=== PATIENT | female | born 1990 | race Two or more races ===

== ENCOUNTER 2016-03-24 17:21 | Emergency (ER) | payer SELFPAY ==
--- NOTE | 2016-03-24 17:35 | ER Document Report ---
ED Medical Screen (RME) - General Stated Complaint: EAR PAIN Time seen by provider: 17:33 Mode of Arrival: Ambulatory Information source: Patient Notes: 25-year-old female with complaining of upper respiratory infection can no longer hear out of both of her ears I can see bilateral purulent effusions in triage. TRAVEL OUTSIDE OF THE [place] IN LAST 30 DAYS: No - Related Data Allergies/Adverse Reactions: No Known Allergies Allergy (Verified 04/19/15 06:29) Past Medical History - Past Medical History Cardiac Medical History: Denies: Hx Coronary Artery Disease, Hx Heart Attack, Hx Hypertension Pulmonary Medical History: Denies: Hx Asthma, Hx Bronchitis, Hx COPD, Hx Pneumonia Neurological Medical History: Denies: Hx Cerebrovascular Accident, Hx Seizures Musculoskeltal Medical History: Reports Hx Arthritis - Hands, Lt knee - Immunizations Immunizations up to date: Yes Hx Diphtheria, Pertussis, Tetanus Vaccination: Yes Physical Exam - Vital signs Vitals: Temp Pulse Resp BP Pulse Ox 99.2 F 105 H 16 149/97 H 97 03/24/16 17:27 03/24/16 17:27 03/24/16 17:27 03/24/16 17:27 03/24/16 17:27 Course - Vital Signs Vital signs: Temp Pulse Resp BP Pulse Ox 99.2 F 105 H 16 149/97 H 97 03/24/16 17:27 03/24/16 17:27 03/24/16 17:27 03/24/16 17:27 03/24/16 17:27
[2016-03-24] MEDS ORDERED: AMOXICILLIN TRYHYD 250 MG/5 ML SUSP 80 ML (ER DISP) PO ONE (18:23)
--- NOTE | 2016-03-24 18:32 | ER Document Report ---
ED General - General Chief Complaint: Cold Symptoms Stated Complaint: EAR PAIN Time seen by provider: 18:26 Mode of Arrival: Ambulatory Information source: Patient TRAVEL OUTSIDE OF THE [place] IN LAST 30 DAYS: No - HPI Patient complains to provider of: R ear pain Onset: Other - Pt. with c/o congestion and R earache for the past 2-3 days. Denies fever. - Related Data Allergies/Adverse Reactions: No Known Allergies Allergy (Verified 04/19/15 06:29) Past Medical History - General Information source: Patient - Social History Smoking Status: Never Smoker Cigarette use (# per day): No Chew tobacco use (# tins/day): No Smoking Education Provided: No Family History: Reviewed & Not Pertinent - Past Medical History Cardiac Medical History: Denies: Hx Coronary Artery Disease, Hx Heart Attack, Hx Hypertension Pulmonary Medical History: Denies: Hx Asthma, Hx Bronchitis, Hx COPD, Hx Pneumonia Neurological Medical History: Denies: Hx Cerebrovascular Accident, Hx Seizures Renal/ Medical History: Denies: Hx Peritoneal Dialysis Musculoskeltal Medical History: Reports Hx Arthritis - Hands, Lt knee - Immunizations Immunizations up to date: Yes Hx Diphtheria, Pertussis, Tetanus Vaccination: Yes Review of Systems - Review of Systems Constitutional: No symptoms reported EENT: See HPI, Ear pain Cardiovascular: No symptoms reported Respiratory: No symptoms reported Gastrointestinal: No symptoms reported -: Yes All other systems reviewed and negative Physical Exam - Vital signs Vitals: Temp Pulse Resp BP Pulse Ox 99.2 F 105 H 16 149/97 H 97 03/24/16 17:27 03/24/16 17:27 03/24/16 17:27 03/24/16 17:27 03/24/16 17:27 - General General appearance: Appears well In distress: None - HEENT Ears: Other - R TM- red, dull, loss of landmarks. L TM nl. Mouth/Lips: Normal Mucous membranes: Normal Pharynx: Normal Neck: Normal - Respiratory Respiratory status: No respiratory distress Breath sounds: Normal - Cardiovascular Rhythm: Regular Heart sounds: Normal auscultation Course - Vital Signs Vital signs: Temp Pulse Resp BP Pulse Ox 99.2 F 105 H 16 149/97 H 97 03/24/16 17:30 03/24/16 17:30 03/24/16 17:30 03/24/16 17:30 03/24/16 17:30 Discharge - Discharge Clinical Impression: Otitis media Qualifiers: Otitis media type: unspecified Laterality: right Chronicity: acute Condition: Stable Disposition: HOME, SELF-CARE Additional Instructions: rest, take meds as prescribed , return if worse Prescriptions: Amoxicillin 250 mg PO Q8 #120 ml Referrals: TONA SANTA MD [ACTIVE STAFF] - Follow up as needed
[2016-03-24 19:12] VITALS: BP 130/68
== END 2016-03-24 18:55 | disposition home or self-care (01) ==
LOC: ER 17:21
DX: H66.91 Otitis media, unspecified, right ear (principal); H92.01 Otalgia, right ear
CPT/HCPCS: 99282

== ENCOUNTER 2016-06-26 08:19 | Emergency (ER) | payer SELFPAY ==
[2016-06-26] MEDS ORDERED: LIDOCAINE 4%/TETRACAINE 0.5%/EPI 0.18% 5 ML TOPICAL SOLN TOP ONE (08:32)
[2016-06-26] MEDS ORDERED: LIDOCAINE 1% INJ-PF (10 MG/ML) 30 ML SDV INJ ONE (08:46)
--- NOTE | 2016-06-26 08:46 | ER Document Report ---
HPI - HPI Patient complains to provider of: Cut head Onset: Yesterday - Late Onset/Duration: Sudden Quality of pain: Achy Pain Level: 1 Context: 25-year-old female bumped the top of her head on a counter late last night. She did not realize that it was cut open until this morning. Tetanus is current. No dizziness or loss of consciousness Associated Symptoms: None Exacerbated by: Denies Relieved by: Denies Similar symptoms previously: No Recently seen / treated by doctor: No - ROS ROS below otherwise negative: Yes Systems Reviewed and Negative: Yes All other systems reviewed and negative - REPRODUCTIVE LMP: 05/31 Reproductive: REPORTS: : - DERM Skin Color: Normal Past Medical History - General Information source: Patient - Social History Smoking Status: Never Smoker Frequency of alcohol use: None Drug Abuse: None Lives with: Spouse/Significant other Family History: Reviewed & Not Pertinent Patient has suicidal ideation: No Patient has homicidal ideation: No Renal/ Medical History: Denies: Hx Peritoneal Dialysis Musculoskeltal Medical History: Reports Hx Arthritis - Hands, Lt knee - Immunizations Immunizations up to date: Yes Hx Diphtheria, Pertussis, Tetanus Vaccination: Yes Vertical Provider Document - CONSTITUTIONAL Agree With Documented VS: Yes Exam Limitations: No Limitations - INFECTION CONTROL TRAVEL OUTSIDE OF THE [place] IN LAST 30 DAYS: No - HEENT HEENT: Normocephalic Notes: 2.5 cm cut front top of scalp - NECK Neck: Supple - RESPIRATORY O2 Sat by Pulse Oximetry: 98 - MUSCULOSKELETAL/EXTREMETIES Musculoskeletal/Extremeties: MAEW, FROM - NEURO Level of Consciousness: Awake, Alert, Appropriate Motor/Sensory: No Motor Deficit, No Sensory Deficit - DERM Integumentary: Warm, Dry, Laceration - see above Course - Vital Signs Vital signs: Temp Pulse Resp BP Pulse Ox 98.9 F 86 16 133/74 H 98 06/26/16 08:24 06/26/16 08:24 06/26/16 08:24 06/26/16 08:24 06/26/16 08:24 Procedures - Laceration/Wound Repair Head Time completed: 09:40 Wound length (cm): 2.5 Wound's Depth, Shape: Linear Laceration pre-procedure: Sterile drapes applied, Other - surgiscrub Anesthetic type: Other - L.E.T Volume Anesthetic (mLs): 6 Wound explored: Clean Irrigated w/ Saline (mLs): 250 Wound Repaired With: Leeann Number of Sutures: 5 Post-procedure NV exam normal: Yes Complications: No Discharge - Discharge Clinical Impression: scalp laceration repair Condition: Good Disposition: HOME, SELF-CARE Instructions: Antibiotic Ointment Protection ([facility]), Laceration Care ([facility]), Care of Stapled Wounds ([facility]), Use of [id number] Ibuprofen ([facility]) Additional Instructions: Keep the wound clean felecia may shower when you get home [place] and [place] removed in 1 week Return for any signs of infection Please complete the patient satisfaction survey if you get one, and return it.. If you do not receive a survey, then you can go to the [facility] website, [email or web address] and place your comments about your very good care. Thank you very much. It was a pleasure being your medical provider today. Forms: Return to Work
[2016-06-26 09:57] VITALS: BP 137/92
== END 2016-06-26 09:51 | disposition home or self-care (01) ==
LOC: ER 08:19
PROC: 0HQ0XZZ Repair Scalp Skin, External Approach (ICD-10-PCS; principal; 2016-06-26)
DX: S01.91XA Laceration without foreign body of unspecified part of head, initial encounter (principal); W22.8XXA Striking against or struck by other objects, initial encounter
CPT/HCPCS: 99282; 12001; J3490 ×2

== ENCOUNTER 2017-06-02 13:15 | Outpatient (CLI) | payer MEDICAID ==
[2017-06-02 14:17] LABS: APPEARANCE,URINE CLOUDY; BILIRUBIN,URINE NEGATIVE (NEGATIVE); COLOR,URINE AMBER; GLUCOSE, URINE NEGATIVE (NEGATIVE); KETONES,URINE 80 mg/dL (NEGATIVE); LEUKOCYTE ESTERASE,URINE SMALL (NEGATIVE); NITRITE,URINE NEGATIVE (NEGATIVE); PROTEIN,URINE 30 mg/dL (NEGATIVE); URINE SPECIFIC GRAVITY 1.024
[2017-06-02 14:41] LABS: URINE AMPHETAMINES SCREEN NEGATIVE; URINE BARBITURATES SCREEN NEGATIVE; URINE BENZODIAZEPINES SCREEN NEGATIVE; URINE COCAINE SCREEN NEGATIVE; URINE MARIJUANA (THC) SCREEN NEGATIVE; URINE METHADONE SCREEN NEGATIVE; URINE PHENCYCLIDINE SCREEN NEGATIVE
== END 2017-06-02 15:43 | disposition home or self-care (01) ==
LOC: LC 13:15
PROVIDERS: ATTEND Obstetrics & Gynecology
PROC: 4A1HXCZ Monitoring of Products of Conception, Cardiac Rate, External Approach (ICD-10-PCS; principal; 2017-06-02)
DX: O99.283 Endocrine, nutritional and metabolic diseases complicating pregnancy, third trimester (principal); E86.0 Dehydration; Z3A.37 37 weeks gestation of pregnancy
CPT/HCPCS: 59025; 80307; 81005

== ENCOUNTER 2017-06-16 22:32 | Inpatient (IN) | payer MEDICAID ==
[2017-06-16 23:07] LABS: APPEARANCE,URINE TURBID; BILIRUBIN,URINE NEGATIVE (NEGATIVE); COLOR,URINE AMBER; GLUCOSE, URINE NEGATIVE (NEGATIVE); KETONES,URINE 80 mg/dL (NEGATIVE); LEUKOCYTE ESTERASE,URINE LARGE (NEGATIVE); NITRITE,URINE NEGATIVE (NEGATIVE); PROTEIN,URINE 100 mg/dL (NEGATIVE); URINE SPECIFIC GRAVITY 1.011
[2017-06-16 23:16] LABS: AMNISURE (ROM) POSITIVE (NEGATIVE)
[2017-06-16] MEDS ORDERED: RINGERS SOLUTION,LACTATED 1,000 ML IV PRN (23:16)
[2017-06-16] MEDS ORDERED: RINGERS SOLUTION,LACTATED 1,000 ML IV ONE (23:16)
[2017-06-16] MEDS ORDERED: PENICILLIN G POTASSIUM 5,000,000 UNIT in DEXTROSE 5%-WATER 100 ML IV ONE (23:16)
[2017-06-16 23:23] LABS: URINE AMPHETAMINES SCREEN NEGATIVE; URINE BARBITURATES SCREEN NEGATIVE; URINE BENZODIAZEPINES SCREEN NEGATIVE; URINE COCAINE SCREEN NEGATIVE; URINE MARIJUANA (THC) SCREEN NEGATIVE; URINE METHADONE SCREEN NEGATIVE; URINE PHENCYCLIDINE SCREEN NEGATIVE
[2017-06-16] MEDS ORDERED: OXYTOCIN/NORMAL SALINE 20 UNIT/1,000 ML RTUINJ IV PRN (23:23)
[2017-06-16] MEDS ORDERED: PENICILLIN G-K 5 MILLION UNIT VIAL ONE (23:31)
[2017-06-16] MEDS ORDERED: LIDOCAINE 1% INJ-PF (10 MG/ML) 30 ML SDV ONE (23:31)
[2017-06-16] MEDS ORDERED: OXYTOCIN/NORMAL SALINE 20 UNIT/1,000 ML RTUINJ ONE (23:31)
[2017-06-16] MEDS ORDERED: MISOPROSTOL 0.2 MG TABLET ONE (23:31)
[2017-06-17 00:03] LABS: ABSOLUTE LYMPHOCYTES (AUTO) 1.4 10^3/uL (0.5-4.7); ABSOLUTE MONOCYTES (AUTO) 0.8 10^3/uL (0.1-1.4); BASOPHILS % (AUTO) 0.3 % (0-2); EOSINOPHILS % (AUTO) 0.2 % (0-6); HEMATOCRIT 38.6 % (36.0-47.0); HEMOGLOBIN 13.1 g/dL (12.0-15.5); LYMPHOCYTES % (AUTO) 12.7 % (13-45); MEAN CORPUSCULAR HGB CONC 33.9 g/dL (32.0-36.0); MEAN CORPUSCULAR VOLUME 92 fl (80-97); MONOCYTES % (AUTO) 7.4 % (3-13); PLATELET COUNT 263 10^3/uL (150-450); RED BLOOD COUNT 4.22 10^6/uL (3.72-5.28); RED CELL DISTRIBUTION WIDTH 14.1 % (11.5-14.0); SEGMENTED NEUTROPHILS % (AUTO) 79.4 % (42-78); TOTAL CELLS COUNTED % (AUTO) 100 %; WHITE BLOOD COUNT 11.3 10^3/uL (4.0-10.5)
--- NOTE | 2017-06-17 00:18 | Admission Physical ---
Datetime Report Generated by CPN: 06/17/2017 00:18 CURRENT ADMISSION Chief Complaint: Suspected Ruptured Membranes Indication for Induction: PROM Admit Impression : Term, Intrauterine ; Ruptured Membranes; Induction of Labor Admit Plan: Admit to Unit; Initiate Labor Induction Protocol ALLERGIES Medication Allergies: No Medication Allergies: No Known Allergies (06/26/2016) Latex: No Latex Allergies OBSTETRICAL HISTORY EDC: 06/18/2017 00:00 : 3 Para: 2 Term: 2 : 0 SAB: 0 IAB: 0 Ectopic: 0 Livin Cesareans: 0 VBACs: 0 Multiple Births: 0 Gestational Diabetes: No Rh Sensitization: No Incompetent Cervix: No JOHANNE: No Infertility: No ART Treatment: No Uterine Anomaly: No IUGR: No Hx Previous C/S: No Macrosomia: No Hx Loss/Stillborn: No PIH: No Hx : No Placenta Previa/Abruption: No Depression/PP Depression: No PTL/PROM: No Post Hemorrhage: No Current Procedures: Ultrasound; NST SEE RECORDS Alcohol: No Marijuana : No Cocaine: No Other Illicit Drugs: No Cigarettes: Never Smoker. 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 Surgery: No Heart Disease: No Hosp/Surgery: No Autoimmune Disorder: No Anesthetic Complications: No Kidney Disease: No Abnormal Pap Smear: No Neuro/Epilepsy: No Psychiatric Disorders: No Other Medical Diseases: No Hepatitis/Liver Disease: No Significant Family History: No Varicosities/Phlebitis: No Trauma/Violence : No Thyroid Dysfunction: No INFECTIOUS HISTORY Genital Herpes: No Tuberculosis: No Hepatitis: No HIV/AIDS Exposure: No Rash or Viral Illness: No HPV: No PHYSICAL EXAM General: Normal HEENT: Normal Neurologic: Normal Thyroid: Deferred Heart: Normal Lungs: Normal Breast: Deferred Back: Normal Abdomen: Normal Genitourinary Exam: Normal Extremities: Normal DTRs: Normal Pelvic Type: Adequate Vital Signs: Reviewed VAGINAL EXAM Dilatation: 2 Effacement: 25 Station: -4 Contraction Comments: none FETUS A EGA: 39.6 Monitoring: External US FHR- Baseline: 125 Variability: Moderate 6-25bpm Accelerations: 15X15 Decelerations: None FHR Category: Category I Presentation: Vertex Admit Comment: 26yo at 39+6ega presents for premature rupture of memranes - clear fluid at 2225. GBS positive - will begin PCN for prophy. Will begin pitocin. Cervix is unfavorable and will place cooks catheter for IOL with pitocin. Obesity - BMI 48. Macrosomia with 8# at 36wks. Anesthesia consult done 06/06. 1st child with only one ear developed - reportedly no genetic component. Pelvis proven to 8#6oz. Passed early 1hr GTT and passed 28wks GTT. Anticpate . C/S for maternal/ indications. PLANS FOR LABOR AND DELIVERY Labor and Delivery: None Pain Management: Epidural Feeding Preference: Both Benefit of Breast Feed Discussed: Yes Circumcision: Yes INFORMED CONSENT Informed Consent Obtained: Vaginal Delivery; Induction of Labor; Risks, Benefits and Alternatives Discussed Signature: with User ID: [email or web address]
[2017-06-17] MEDS ORDERED: NALBUPHINE HCL INJ 10 MG/1 ML AMPULE ONE (00:19)
[2017-06-17] MEDS ORDERED: NALBUPHINE HCL INJ 10 MG/1 ML AMPULE INJ ONE (00:21)
[2017-06-17] MEDS ORDERED: ONDANSETRON HCL INJ/PF 4 MG/2 ML SDV IV PRN (00:32)
[2017-06-17] MEDS ORDERED: PENICILLIN G-K 5 MILLION UNIT VIAL ONE ×2 (03:54→08:15)
[2017-06-17] MEDS ORDERED: PHENYLEPHRINE HCL INJ/PF 10 MG/1 ML SDV ONE (05:04)
[2017-06-17] MEDS ORDERED: FENTANYL CITRATE INJ/PF 100 MCG/2 ML AMPUL ONE (05:04)
[2017-06-17] MEDS ORDERED: EPHEDRINE SULFATE INJ 50 MG/1 ML AMPULE ONE (05:04)
[2017-06-17] MEDS ORDERED: BUPIVACAINE HCL 0.25 % INJ/PF (2.5 MG/1 ML) 30 ML VIAL ONE (05:05)
[2017-06-17] MEDS ORDERED: FENTANYL/BUPIVACAINE/NS/PF 200 MCG/100 ML RTUINJ EPI ONE (05:06)
[2017-06-17] MEDS ORDERED: LIDOCAINE 1.5%/EPINEPHRINE INJ-PF 30 ML SDV ONE (05:06)
[2017-06-17] MEDS: PENICILLIN G POTASSIUM 2,500,000 UNIT in DEXTROSE 5%-WATER 50 ML IV SCH ×2 (08:23→14:47)
--- NOTE | 2017-06-17 09:16 | L&D Progress Notes ---
PROGRESS NOTES Datetime Report Generated by CPN: 06/17/2017 09:16 PROGRESS NOTE Impression: Normal Progression of Labor Procedures: Scalp Electrode; Sterile Vag Exam; Amnio Infusion Plan: Continue Present Management; Induction Plan Other: PROM Informed Consent Obtained: Vaginal Delivery Informed Consent Obtained: Vaginal Delivery; Induction of Labor; Risks, Benefits and Alternatives Discussed Vital Signs : Reviewed; Within Normal Limits Comment: IOL for PROM. obese. IUPC and FSE placed easily for better monitoring. CNM requested RN turn pitocin down by 2mu/min after IUPC. continue IOL, anticipate VAGINAL EXAM Dilatation: 7 Dilatation: 2 Effacement: c Effacement: 25 Station: -2 Station: -4 Contractions: q2mins Contractions: none MEMBRANES Membranes: Ruptured Amniotic Fluid Color: Clear FETUS A FHR - Baseline: 130 Decelerations: Early; Variable : 39+5 Presentation: Vertex SIGNATURE SIGNATURE: [id number] SIGNATURE: [id number] Assignment: Leny Calles MD Signature: with User ID: [email or web address] : with User ID: [email or web address]
[2017-06-17] MEDS ORDERED: (PENDING PHARMACY ID) (Sertraline Hcl [Zoloft] 25 MG) PO SCH (10:00)
[2017-06-17] MEDS ORDERED: MAGNESIUM HYDROXIDE SUSP 30 ML UDCUP PO PRN (10:43)
[2017-06-17] MEDS ORDERED: PSEUDOEPHEDRINE HCL 30 MG TABLET PO PRN (10:43)
[2017-06-17] MEDS ORDERED: OXYTOCIN/NORMAL SALINE 20 UNIT/1,000 ML RTUINJ IV PRN (10:43)
[2017-06-17] MEDS ORDERED: ACETAMINOPHEN WITH CODEINE #3 TABLET PO PRN ×2 (10:43)
[2017-06-17] MEDS ORDERED: DIPH/PERTUSS(ACELL)/TETANUS VAC/PF 0.5 ML SYR (>=10YO) IM PRN (10:43)
[2017-06-17] MEDS ORDERED: DIPHENHYDRAMINE HCL 25 MG CAPSULE PO PRN (10:43)
[2017-06-17] MEDS ORDERED: PROMETHAZINE HCL 25 MG TABLET PO PRN (10:43)
[2017-06-17] MEDS ORDERED: DIBUCAINE 1% OINTMENT 28 GM TP PRN (10:43)
[2017-06-17] MEDS ORDERED: PROMETHAZINE HCL 25 MG SUPP.RECT PR PRN (10:43)
[2017-06-17] MEDS ORDERED: MEASLES,MUMPS&RUBELLA VACC/PF 0.5 ML VIAL SUBCUT PRN (10:43)
[2017-06-17] MEDS ORDERED: ACETAMINOPHEN 325 MG TABLET PO PRN (10:43)
[2017-06-17] MEDS ORDERED: NA PHOS,M-B/NA PHOS,DI-BA (ADULT) 133 ML ENEMA PR PRN (10:43)
[2017-06-17] MEDS ORDERED: PROMETHAZINE HCL INJ 25 MG/1 ML VIAL IV PRN (10:43)
[2017-06-17] MEDS ORDERED: GLYCERIN/WITCH HAZEL LEAF 1 EACH MED..PAD TP PRN (10:43)
[2017-06-17] MEDS ORDERED: BENZOCAINE/MENTHOL AEROSOL SPRAY 56 ML TOP PRN (10:43)
[2017-06-17] MEDS ORDERED: ZOLPIDEM TARTRATE 5 MG TABLET PO PRN (10:43)
--- NOTE | 2017-06-17 13:04 | Delivery Summary ---
Del Sum A-C Datetime Report Generated by CPN: 06/17/2017 13:04 DELIVERY PERSONNEL DELIVERY PERSONNEL: [id number] Delivery Doctor:: Sarah Seals CNM Labor and Delivery Nurse:: Latrice Calles RNplant and equipment worker Nurse:: Leticia Goyal RN Greeting Card Editor/COOK AT [employer]CHO[employer]: Elaine Jay Jay, BUYING AGENT Greeting Card Editor/COOK AT [employer]CHO[employer]: Tylor Summers RN MATERNAL INFORMATION Delivery Anesthesia: Epidural Medications After Delivery: Pitocin Bolus-Please Comment Meds After Delivery Comment: Pitocin 20 Units in 1 L NS bolusing per order Maternal Complications: None Provider Comments: CAYLA VIABLE MALE WITH SPONTANEOUS CRY. LOOSE NUCHAL CORD X1. CORD DOUBLE CLAMPED AND CUT. SPONTANEOUS INTACT PLACENTA WITH 3VC. NO LACERATIONS. MOTHER AND STABLE IN L_D ROOM #1 LABOR SUMMARY EDC: 06/18/2017 00:00 No. Babies in Womb: 1 (Annotations: Data stored by [facility] on behalf of user) Attempted: No Labor Anesthesia: Epidural LABOR INFORMATION Reason for Induction: Not Applicable Onset of Labor: 06/17/2017 05:49 Complete Dilatation: 06/17/2017 10:08 Cervical Ripening Agents: Hood Balloon Oxytocin: Augmentation Group B Beta Strep: Positive Antibiotics # of Doses: 3 Antibiotics Time of Last Dose: 814 Name of Antibiotic Given: PCN Steroids Given: None Reason Steroids Not Administered: Not Applicable MEMBRANES Membranes Rupture Method: Spontaneous Rupture of Membranes: 06/16/2017 22:25 Length of Rupture (hr): 11.77 Amniotic Fluid Color: Clear Amniotic Fluid Amount: Moderate Amniotic Fluid Odor: Normal STAGES OF LABOR Stage 1 hr: 4 Stage 1 min: 19 Stage 2 hr: 0 Stage 2 min: 3 Stage 3 hr: 0 Stage 3 min: 5 Total Time in Labor hr: 4 Total Time in Labor min: 27 VAGINAL DELIVERY Episiotomy: None Laceration #1: None Laceration Extension #1: N/A Laceration Repair: Not Applicable Sponge Count Correct: N/A Sharps Count Correct: N/A CSECTION DELIVERY Primary Indication: N/A Secondary Indication: N/A CSection Incidence: N/A Labor: N/A Elective: N/A CSection Incision: N/A BABY A INFORMATION Delivery Date/Time: 06/17/2017 10:11 Method of Delivery: Vaginal Born in Route : No : N/A Forceps: N/A Vacuum Extraction: N/A Shoulder Dystocia : No PRESENTATION/POSITION BABY A Presentation: Cephalic Cephalic Presentation: Vertex Vertex Position: Left Occipital Anterior Breech Presentation: N/A PLACENTA INFORMATION BABY A Placenta Delivery Time : 06/17/2017 10:16 Placenta Method of Delivery: Spontaneous Placenta Status: Delivered SCORES BABY A Heart Rate 1 min: >100 bpm Resp Effort 1 min: Good Cry Reflex Irritability 1 min: Grimace Muscle Tone 1 min: Active Motion Color 1 min: Body [place], Extremities Blue Resuscitation Effort 1 min: Tactile Stimulation SCORE 1 MIN: 8 Heart Rate 5 min: >100 bpm Resp Effort 5 min: Good Cry Reflex Irritability 5 min: Grimace Muscle Tone 5 min: Active Motion Color 5 min: Body [place], Extremities Blue Resuscitation Effort 5 min: Tactile Stimulation SCORE 5 MIN: 8 INFORMATION BABY A Gestational Age at Delivery: 39.6 Gestational Status: Full Term- 39- 40.6 Weeks Outcome : Liveborn Infant Condition : Stable Sex: Male IDENTIFICATION BABY A Infant Verification Date/Time: 06/17/2017 10:35 ID Band Number: [id number] Mother's Name Verified: Yes RN Verifying : Hernán Calles, RN, Debra Summers, RN WEIGHT/LENGTH BABY A Infant Birthweight (gm): 3640 Weight (lb): 8 Weight (oz): 0 Length (in): 21.00 Infant Length (cm): 53.34 CORD INFORMATION BABY A No. Cord Vessels: 3 Nuchal Cord : Around Neck x1, Loose Cord Blood Taken: Yes-For Eval (Mom's Blood Type - or O+) Infant Suction: Mouth ASSESSMENT BABY A Complications: None Physical Findings at Delivery: Within Normal Limits Respirations: Appears Normal Skin to Skin: Yes Fagoter/ALS Called : No Infant Care By: R Summers, RN BABY B INFORMATION : N/A SIGNATURES Assignment: Leny Calles MD Signature: with User ID: [email or web address] : with User ID: [email or web address] : I was personally available for consultation and serving as supervising physician for the MLP.
[2017-06-17] MEDS: SERTRALINE HCL 50 MG TABLET PO SCH (14:47)
[2017-06-17] MEDS: IBUPROFEN 800 MG TABLET PO SCH ×2 (14:54→22:09)
[2017-06-17] MEDS: DOCUSATE SODIUM 100 MG CAPSULE PO SCH (18:11)
[2017-06-17] MEDS: FERROUS SULFATE 325 MG TABLET PO SCH (18:11)
[2017-06-17] MEDS: FAMOTIDINE 20 MG TABLET PO SCH (22:09)
[2017-06-18] MEDS: IBUPROFEN 800 MG TABLET PO SCH ×3 (05:58→21:53)
[2017-06-18 07:03] LABS: HEMATOCRIT 35.7 % (36.0-47.0); HEMOGLOBIN 12.4 g/dL (12.0-15.5); MEAN CORPUSCULAR HEMOGLOBIN 31.7 pg (27.0-33.4); MEAN CORPUSCULAR HGB CONC 34.6 g/dL (32.0-36.0); MEAN CORPUSCULAR VOLUME 92 fl (80-97); PLATELET COUNT 242 10^3/uL (150-450); RED CELL DISTRIBUTION WIDTH 13.7 % (11.5-14.0)
--- NOTE | 2017-06-18 09:00 | PDOC PROGRESS REPORT ---
Subjective-OB Progress Note for:: 06/18/17 Subjective: Doing well, breast feeding, voiding, ambulating, no c/o Physical Exam (OB) Vital Signs: Temp Pulse Resp BP Pulse Ox 98.5 F 77 18 137/72 H 98 06/17/17 19:55 06/17/17 19:55 06/17/17 19:55 06/17/17 19:55 06/17/17 19:55 Intake & Output 06/17/17 06/18/17 06/19/17 06:59 06:59 06:59 Weight 139.5 kg - Lochia Lochia Amount: Scant < 10 ml Lochia Color: Rubra/Red - Abdomen Description: Soft, Flat Hernia Present: No Fundal Description: Firm, Midline Fundal Height: u/u - u/2 Objective-Diagnostic Laboratory: 06/18/17 06:49 06/18/17 06:49 WBC 8.0 RBC 3.90 Hgb 12.4 Hct 35.7 L MCV 92 MCH 31.7 MCHC 34.6 RDW 13.7 Plt Count 242 Assessment and Plan(PN) - Assessment and Plan (1) Delivery normal Is this a current diagnosis for this admission?: Yes (2) Obesity Qualifiers: Obesity type: due to excess calories Is this a current diagnosis for this admission?: Yes (3) Carrier of group B Streptococcus Is this a current diagnosis for this admission?: Yes (4) Premature rupture of membranes Qualifiers: PROM onset of labor timing: onset of labor within 24 hours of rupture Is this a current diagnosis for this admission?: Yes - Time Spent with Patient Medications reviewed and adjusted accordingly: Yes - Disposition Anticipated Discharge: Home Within: within 24 hours
[2017-06-18] MEDS: SERTRALINE HCL 50 MG TABLET PO SCH (09:24)
[2017-06-18] MEDS: SENNOSIDES/DOCUSATE 8.6-50 MG 1 EACH TABLET PO SCH (09:25)
[2017-06-18] MEDS: PRENATAL VITAMIN W DHA CAPSULE PO SCH (09:25)
[2017-06-18] MEDS: FERROUS SULFATE 325 MG TABLET PO SCH ×2 (09:25→18:41)
[2017-06-18] MEDS: DOCUSATE SODIUM 100 MG CAPSULE PO SCH ×2 (09:25→18:41)
[2017-06-18] MEDS: FAMOTIDINE 20 MG TABLET PO SCH ×2 (09:26→21:53)
[2017-06-19] MEDS: IBUPROFEN 800 MG TABLET PO SCH ×2 (05:34→15:09)
[2017-06-19 08:43] VITALS: BP 126/69
[2017-06-19] MEDS: PRENATAL VITAMIN W DHA CAPSULE PO SCH (10:07)
[2017-06-19] MEDS: DOCUSATE SODIUM 100 MG CAPSULE PO SCH (10:09)
[2017-06-19] MEDS: SENNOSIDES/DOCUSATE 8.6-50 MG 1 EACH TABLET PO SCH (10:16)
--- NOTE | 2017-06-19 10:22 | PDOC DISCHARGE SUMMARY ---
Final Diagnosis Discharge Date: 06/19/17 - Final Diagnosis (1) Delivery normal Is this a current diagnosis for this admission?: Yes (2) Obesity Is this a current diagnosis for this admission?: Yes Discharge Data - Discharge Medication Home Medications: Vit/Iron Fum/Folic AC [ Tablet] 1 tab PO DAILY 04/02/15 Sertraline HCl [Zoloft] 25 mg PO DAILY 06/16/17 Reason(s) for Admission: Onset of Labor Procedures: None Intrapartum Procedure(s): Spontaneous Vaginal Delivery - Diagnosis Test Laboratory: Temp Pulse Resp BP Pulse Ox 98.0 F 76 16 126/69 H 99 06/19/17 07:52 06/19/17 07:52 06/19/17 07:52 06/19/17 07:52 06/19/17 07:52 06/16/17 06/16/17 06/18/17 22:53 23:45 06:49 RBC 4.22 3.90 Hgb 13.1 12.4 Hct 38.6 35.7 L Urine Opiates Screen NEGATIVE - Discharge information/Instructions Discharge Activity: Activity As Tolerated Discharge Diet: Regular Disposition: HOME, SELF-CARE Follow up with: [facility] in: 3
[2017-06-19] MEDS: FAMOTIDINE 20 MG TABLET PO SCH (10:23)
[2017-06-19] MEDS: FERROUS SULFATE 325 MG TABLET PO SCH (10:23)
[2017-06-19] MEDS: SERTRALINE HCL 50 MG TABLET PO SCH (10:23)
== END 2017-06-19 17:15 | disposition home or self-care (01) | DRG 775 ==
LOC: LC 22:32 → LR 23:12 → 2S 06-17 12:51
PROVIDERS: ADMIT Obstetrics & Gynecology; ATTEND Obstetrics & Gynecology
PROC: 10E0XZZ Delivery of Products of Conception, External Approach (ICD-10-PCS; principal; 2017-06-16)
PROC: 4A1HXCZ Monitoring of Products of Conception, Cardiac Rate, External Approach (ICD-10-PCS; 2017-06-16)
PROC: 0U7C7ZZ Dilation of Cervix, Via Natural or Artificial Opening (ICD-10-PCS; 2017-06-16)
DX: O42.02 Full-term premature rupture of membranes, onset of labor within 24 hours of rupture (principal); Z68.42 Body mass index [BMI] 45.0-49.9, adult; O69.81X0 Labor and delivery complicated by cord around neck, without compression, not applicable or unspecified; O99.214 Obesity complicating childbirth; E66.9 Obesity, unspecified; O99.824 Streptococcus B carrier state complicating childbirth; Z3A.39 39 weeks gestation of pregnancy; Z37.0 Single live birth
CPT/HCPCS: 36415; 80307; 81005; 84112; 85025; 85027; 86592; 86850; 86900; 86901; J2300; J2370; J2540; J2590; J3010; J3490

== ENCOUNTER 2018-11-17 15:58 | Emergency (ER) | payer SELFPAY ==
[2018-11-17 16:08] VITALS: BP 143/78
[2018-11-17 16:36] LABS: AMORPHOUS SEDIMENT,URINE TRACE /HPF; APPEARANCE,URINE CLOUDY; BILIRUBIN,URINE NEGATIVE (NEGATIVE); COLOR,URINE YELLOW; GLUCOSE, URINE NEGATIVE (NEGATIVE); KETONES,URINE TRACE mg/dL (NEGATIVE); LEUKOCYTE ESTERASE,URINE LARGE (NEGATIVE); NITRITE,URINE NEGATIVE (NEGATIVE); PROTEIN,URINE 100 mg/dL (NEGATIVE); URINE SPECIFIC GRAVITY 1.019; UROBILINOGEN,URINE NEGATIVE mg/dL (<2.0)
[2018-11-17] MEDS ORDERED: KETOROLAC TROMETHAMINE INJ/PF 30 MG/1 ML SDV IV ONE (16:44)
[2018-11-17] MEDS ORDERED: NORMAL SALINE 1000 ML 1,000 ML IV ONE (16:45)
[2018-11-17] MEDS ORDERED: PHENAZOPYRIDINE HCL 100 MG TABLET PO ONE (16:49)
[2018-11-17 17:29] LABS: ABSOLUTE LYMPHOCYTES (AUTO) 2.1 10^3/uL (0.5-4.7); ABSOLUTE NEUT (AUTO) 9.6 10^3/uL (1.7-8.2); BASOPHILS % (AUTO) 0.2 % (0-2); EOSINOPHILS % (AUTO) 0.1 % (0-6); HEMATOCRIT 40.8 % (36.0-47.0); HEMOGLOBIN 13.7 g/dL (12.0-15.5); LYMPHOCYTES % (AUTO) 16.4 % (13-45); MEAN CORPUSCULAR HEMOGLOBIN 29.7 pg (27.0-33.4); MEAN CORPUSCULAR HGB CONC 33.7 g/dL (32.0-36.0); MEAN CORPUSCULAR VOLUME 88 fl (80-97); PLATELET COUNT 345 10^3/uL (150-450); RED BLOOD COUNT 4.62 10^6/uL (3.72-5.28); RED CELL DISTRIBUTION WIDTH 12.8 % (11.5-14.0); SEGMENTED NEUTROPHILS % (AUTO) 75.3 % (42-78); TOTAL CELLS COUNTED % (AUTO) 100 %; WHITE BLOOD COUNT 12.7 10^3/uL (4.0-10.5)
[2018-11-17] MEDS ORDERED: CEFTRIAXONE 1 GM/D5W RTU 1 GM/50 ML RTUPB IV ONE (17:30)
[2018-11-17 18:00] LABS: ALBUMIN 4.2 g/dL (3.5-5.0); ALKALINE PHOSPHATASE 53 U/L (38-126); ANION GAP 11 (5-19); ASPARTATE AMINO TRANSFERASE 17 U/L (14-36); BILIRUBIN,TOTAL 0.6 mg/dL (0.2-1.3); BLOOD UREA NITROGEN 10 mg/dL (7-20); CALCIUM 9.5 mg/dL (8.4-10.2); CARBON DIOXIDE 26 mmol/L (22-30); CHLORIDE 104 mmol/L (98-107); GLUCOSE 81 mg/dL (75-110); TOTAL PROTEIN 7.4 g/dL (6.3-8.2)
--- NOTE | 2018-11-17 18:48 | ER Document Report ---
HPI - HPI Time Seen by Provider: 11/17/18 16:27 Pain Level: 4 Notes: Otherwise well-appearing 28-year-old female presenting to the emergency department with complaints of dysuria, urinary frequency and urinary urgency over the last week. Patient reports she has been trying to self treat at home she does not have insurance. Patient reports that she is now developing low abdominal pain and has been having chills. Patient denies any vomiting but reports nausea. - CONSTITUTIONAL Constitutional: DENIES: Fever, Chills - EENT EENT: DENIES: Sore Throat, Ear Pain, Eye problems - NEURO Neurology: DENIES: Headache, Weakness, Vision blurred, Dizzinesss / Vertigo - CARDIOVASCULAR Cardiovascular: DENIES: Chest pain - RESPIRATORY Respiratory: DENIES: Trouble Breathing, Coughing - GASTROINTESTINAL Gastrointestinal: REPORTS: Abdominal Pain. DENIES: Black / Bloody Stools - URINARY Urinary: REPORTS: Dysuria, Urgency, Frequency - REPRODUCTIVE Reproductive: DENIES: : - MUSCULOSKELETAL Musculoskeletal: DENIES: Extremity pain Past Medical History - General Information source: Patient - Social History Smoking Status: Never Smoker Chew tobacco use (# tins/day): No Frequency of alcohol use: Rare Drug Abuse: None Family History: Reviewed & Not Pertinent Patient has suicidal ideation: No Patient has homicidal ideation: No - Past Medical History Cardiac Medical History: Denies: Hx Coronary Artery Disease, Hx Heart Attack, Hx Hypertension Pulmonary Medical History: Denies: Hx Asthma, Hx Bronchitis, Hx COPD, Hx Pneumonia Neurological Medical History: Denies: Hx Cerebrovascular Accident, Hx Seizures Renal/ Medical History: Denies: Hx Peritoneal Dialysis Musculoskeletal Medical History: Reports Hx Arthritis - Hands, Lt knee - Immunizations Immunizations up to date: Yes Hx Diphtheria, Pertussis, Tetanus Vaccination: Yes Vertical Provider Document - CONSTITUTIONAL Notes: PHYSICAL EXAMINATION: GENERAL: Well-appearing, well-nourished and in no acute distress. HEAD: Atraumatic, normocephalic. EYES: Pupils equal round and reactive to light, extraocular movements intact, co njunctiva are normal. ENT: Nares patent, oropharynx clear without exudates. Moist mucous membranes. NECK: Normal range of motion, supple without lymphadenopathy LUNGS: Breath sounds clear to auscultation bilaterally and equal. No wheezes rales or rhonchi. HEART: Regular rate and rhythm without murmurs ABDOMEN: Soft, nontender, nondistended abdomen. No guarding, no rebound. No masses appreciated. Female : No CVA tenderness. Musculoskeletal: Normal range of motion, no pitting or edema. No cyanosis. NEUROLOGICAL: Cranial nerves grossly intact. Normal speech, normal gait. Normal sensory, motor exams PSYCH: Normal mood, normal affect. SKIN: Warm, Dry, normal turgor, no rashes or lesions noted. - INFECTION CONTROL TRAVEL OUTSIDE OF THE [place] IN LAST 30 DAYS: No Course - Re-evaluation Re-evalutation: Laboratory 11/17/18 11/17/18 11/17/18 16:20 16:20 17:10 WBC 12.7 H RBC 4.62 Hgb 13.7 Hct 40.8 MCV 88 MCH 29.7 MCHC 33.7 RDW 12.8 Plt Count 345 Lymph % (Auto) 16.4 Bullock % (Auto) 8.0 Eos % (Auto) 0.1 Baso % (Auto) 0.2 Absolute Neuts (auto) 9.6 H Absolute Lymphs (auto) 2.1 Absolute Monos (auto) 1.0 Absolute Eos (auto) 0.0 Absolute Basos (auto) 0.0 Seg Neutrophils % 75.3 Sodium Potassium Chloride Carbon Dioxide Anion Gap BUN Creatinine Est GFR ( Amer) Est GFR (MDRD) Non-Af Glucose Calcium Total Bilirubin Direct Bilirubin Neonat Total Bilirubin Neonat Direct Bilirubin Neonat Indirect Bili AST ALT Alkaline Phosphatase Total Protein Albumin Urine Color YELLOW Urine Appearance CLOUDY Urine pH 6.0 Ur Specific [place] 1.019 Urine Protein 100 H Urine Glucose (UA) NEGATIVE Urine Ketones TRACE H Urine Blood SMALL H Urine Nitrite NEGATIVE Urine Bilirubin NEGATIVE Urine Urobilinogen NEGATIVE Ur Leukocyte Esterase LARGE H Urine WBC (Auto) >182 Urine RBC (Auto) 107 Urine Bacteria (Auto) TRACE Squamous Epi Cells Auto 4 U Non-Squamous Epis Auto 1 Amorphous Sediment Auto TRACE Urine Mucus (Auto) MANY Urine Ascorbic Acid 40 H Urine HCG, Qual NEGATIVE 11/17/18 17:10 WBC RBC Hgb Hct MCV MCH MCHC RDW Plt Count Lymph % (Auto) [place] % (Auto) Eos % (Auto) Baso % (Auto) Absolute Neuts (auto) Absolute Lymphs (auto) Absolute Monos (auto) Absolute Eos (auto) Absolute Basos (auto) Seg Neutrophils % Sodium 141.3 Potassium 4.0 Chloride 104 Carbon Dioxide 26 Anion Gap 11 BUN 10 Creatinine 0.77 Est GFR ( Amer) > 60 Est GFR (MDRD) Non-Af > 60 Glucose 81 Calcium 9.5 Total Bilirubin 0.6 Direct Bilirubin 0.0 Neonat Total Bilirubin Not Reportable Neonat Direct Bilirubin Not Reportable Neonat Indirect Bili Not Reportable AST 17 ALT 16 Alkaline Phosphatase 53 Total Protein 7.4 Albumin 4.2 Urine Color Urine Appearance Urine pH Ur Specific [place] Urine Protein Urine Glucose (UA) Urine Ketones Urine Blood Urine Nitrite Urine Bilirubin Urine Urobilinogen Ur Leukocyte Esterase Urine WBC (Auto) Urine RBC (Auto) Urine Bacteria (Auto) Squamous Epi Cells Auto U Non-Squamous Epis Auto Amorphous Sediment Auto Urine Mucus (Auto) Urine Ascorbic Acid Urine HCG, Qual Patient was given 1 g of ceftriaxone IV here in the emergency department, she was also given 1 L of IV fluids. She will be started on oral antibiotics pending urine culture. Patient given strict ED return precautions as outlined in her discharge instructions. Patient verbalizes understanding and agreement with this plan. The patient's emergency department workup and current diagnosis were explained to the patient and or family. Follow-up instructions were provided. Medications if prescribed were discussed. Instructions for when to return to the emergency department including specific worrisome symptoms were discussed with the patient and/or family. - Vital Signs Vital signs: Temp Pulse Resp BP Pulse Ox 98.5 F 107 H 16 143/78 H 98 11/17/18 16:05 11/17/18 16:05 11/17/18 16:05 11/17/18 16:05 11/17/18 16:05 - Laboratory Result Diagrams: 11/17/18 17:10 11/17/18 17:10 Laboratory results interpreted by me: 11/17/18 11/17/18 16:20 17:10 WBC 12.7 H Absolute Neuts (auto) 9.6 H Urine Protein 100 H Urine Ketones TRACE H Urine Blood SMALL H Ur Leukocyte Esterase LARGE H Urine Ascorbic Acid 40 H Discharge - Discharge Clinical Impression: Urinary tract infection Qualifiers: Urinary tract infection type: site unspecified Hematuria presence: without hematuria Qualified Code(s): N39.0 - Urinary tract infection, site not specified Condition: Stable Disposition: HOME, SELF-CARE Additional Instructions: Your urine shows findings consistent with a urinary tract infection. Please take all the antibiotics as directed even if your symptoms have improved. Please follow-up with your primary care physician as needed. Return to emergency room if you develop fever >101F, persistent vomiting, become lethargic, have severe pain in your sides, or any other symptoms that are concerning to you. Prescriptions: Sulfamethoxazole/Trimethoprim [Bactrim Ds Tablet] 1 tab PO BID #14 tablet Phenazopyridine HCl [Pyridium 100 Mg Tablet] 100 mg PO TID #6 tablet Forms: Return to Work
== END 2018-11-17 19:19 | disposition home or self-care (01) ==
LOC: ER 15:58
DX: N39.0 Urinary tract infection, site not specified (principal); R30.0 Dysuria; R35.0 Frequency of micturition; R39.15 Urgency of urination; R10.30 Lower abdominal pain, unspecified; R10.9 Unspecified abdominal pain
CPT/HCPCS: 99283; 36415; 87086; 85025; 81025; 87088; 80053; 81001; J1885; J3490; J7030; J0696; 87186

== ENCOUNTER 2018-12-06 11:25 | Emergency (ER) | payer SELFPAY ==
[2018-12-06 11:38] VITALS: BP 127/78
[2018-12-06] MEDS ORDERED: KETOROLAC TROMETHAMINE INJ/PF 30 MG/1 ML SDV IM ONE (11:40)
[2018-12-06] MEDS ORDERED: CYCLOBENZAPRINE HCL 10 MG TABLET PO ONE (11:41)
--- NOTE | 2018-12-06 11:46 | ER Document Report ---
HPI - HPI Time Seen by Provider: 12/06/18 11:31 Context: Patient is a 28-year-old female who presents to the emergency department with a chief complaint of low back pain. Patient reports she has had chronic low back pain for 6 years. Patient reports over the past 3 days the pain has signific antly gotten worse. Patient reports that the low back pain is located right around the spine and the muscles. Patient reports the pain is worse when she lays flat on her back or when she attempts to stand upright. 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 Patient denies injury or recent heavy lifting. Patient reports the pain is better when she lies on her right side. Patient denies urinary symptoms, states she just finished antibiotic treatment a few weeks ago for a UTI but that her symptoms have completely resolved. Patient denies flank pain. Patient reports she is on her menstrual cycle currently. Patient states there is no chance she could be . Patient denies saddle anesthesia. Patient reports she is wearing a patch to her lower back that she took from a family member. Patient states it is a pain patch. Patient is unsure what is called. Patient denies numbness or tingling to lower extremities. - REPRODUCTIVE Reproductive: DENIES: : Past Medical History - General Information source: Patient - Social History Smoking Status: Unknown if Ever Smoked Lives with: Family Family History: Reviewed & Not Pertinent - Past Medical History Cardiac Medical History: Reports: None Denies: Hx Coronary Artery Disease, Hx Heart Attack, Hx Hypertension Pulmonary Medical History: Reports: None Denies: Hx Asthma, Hx Bronchitis, Hx COPD, Hx Pneumonia EENT Medical History: Reports: None Neurological Medical History: Reports: None. Denies: Hx Cerebrovascular Accident, Hx Seizures Endocrine Medical History: Reports: None Renal/ Medical History: Reports: None. Denies: Hx Peritoneal Dialysis Malignancy Medical History: Reports: None GI Medical History: Reports: None Musculoskeletal Medical History: Reports Hx Arthritis - Hands, Lt knee Skin Medical History: Reports None Psychiatric Medical History: Reports: None Traumatic Medical History: Reports: None Infectious Medical History: Reports: None Surgical Hx: Negative - Immunizations Immunizations up to date: Yes Hx Diphtheria, Pertussis, Tetanus Vaccination: Yes Vertical Provider Document - CONSTITUTIONAL Agree With Documented VS: Yes Exam Limitations: No Limitations General Appearance: No Apparent Distress - INFECTION CONTROL TRAVEL OUTSIDE OF THE [place] IN LAST 30 DAYS: No - HEENT HEENT: Atraumatic, Normocephalic, PERRLA - NECK Neck: Normal Inspection - RESPIRATORY Respiratory: Breath Sounds Normal, No Respiratory Distress - CARDIOVASCULAR Cardiovascular: Regular Rate, Regular Rhythm - GI/ABDOMEN Gastrointestinal: Abdomen Soft, Abdomen Non-Tender, Normal Bowel Sounds - BACK Notes: No CVA tenderness. There is no cervical thoracic midline tenderness. Patient does have midline lumbar tenderness. Patient does have paraspinal lumbar tende rness. Patient also has tenderness to the bilateral latissimus dorsi and the right thoracolumbar fascia. There is no ecchymosis, erythema or edema noted to the back. - NEURO Level of Consciousness: Awake, Alert, Appropriate Course - Re-evaluation Re-evalutation: 12/06/18 11:58 Patient is not tachycardic, hypo-tensive or febrile at this time. - Vital Signs Vital signs: Temp Pulse Resp BP Pulse Ox 98.9 F 74 16 127/78 H 98 12/06/18 11:37 12/06/18 11:37 12/06/18 11:37 12/06/18 11:37 12/06/18 11:37 - Diagnostic Test Radiology reviewed: Reports reviewed Radiology results interpreted by me: 12/06/18 12:29 Lumbar Spine X-Ray 12/06/18 11:40 IMPRESSION: Probable pars defects at L5. No significant listhesis. Disc spaces and vertebral body heights are generally well preserved. Lumbar disc and neural foraminal pathology may be further evaluated by MRI if indicated by localizing signs and symptoms. Discharge - Discharge Clinical Impression: Chronic back pain Qualifiers: Back pain location: low back pain Back pain laterality: midline Sciatica presence: without sciatica Qualified Code(s): M54.5 - Low back pain Condition: Stable Disposition: HOME, SELF-CARE Additional Instructions: Today was seen in the emergency department for low back pain. The x-ray of your lumbar spine did show a pars defect. A pars defect is usually chronic in nature and is also called spondylolysis or a stress fracture. I did provide you with education regarding this. This can cause muscle spasms and low back pain. Typically the treatment for this is anti-inflammatories. If you continue to have discomfort you do need to follow-up with your primary care physician as you may need a referral to a back specialist. [facility] or [facility] for further management. You have reported having chronic low back pain for the past 6 years since having your child. It appears that something has exacerbated the chronic low back pain. Although there was no injury you are significantly tender over the muscles of the lower back. I have prescribed you anti-inflammatories as well as muscle relaxers. I would attempt to use either ice packs or warm packs to your lower back to see if this helps with your discomfort. The most important thing is to stay active and moving so you do not become stiff. Avoid certain movements and motions that make the pain worse. Please follow up with your primary care physician for a re-check or if you continue to have discomfort. Please return to emergency department if you develop any radiation of pain, numbness or tingling down the back of your leg or weakness in your legs, loss of bowel or bladder. LOW BACK PAIN: Three out of every four people will have an episode of disabling back pain during their lifetime. Most commonly the pain is due to straining of the muscles and ligaments in the low back. Usual treatment includes: (1) Rest on a firm surface. Avoid lying on your stomach. (2) Ice pack the painful area. After a few days, gentle heat may be used intermittently to relax the area, or ice packs can be continued. (3) Medication may be needed -- muscle relaxers and antiinflammatory medicines are commonly used. (4) As the back improves, exercises are prescribed to strengthen the back and abdominal muscles. Your doctor will advise you on the proper care for your back at each stage in your recovery. You may be better in a few days -- or healing may take several weeks. If new symptoms of a "herniated disc" (radiation of pain, numbness, or tingling down the back of the leg or weakness in the leg) occur, you should be re-examined. Further testing may be necessary. PAIN MEDICATION INJECTION: You have received an injection of a pain medication. You should experience significant pain relief within 45 minutes. If this injection was a narcotic -- it will impair your judgement, slow your reaction time and make you sleepy (as well as relieve your pain). Narcotics also can cause nausea. You should not drive, work with machinery, or perform any task requiring mental alertness until all effects of the medication are gone -- six to eight hours. Do not take any alcohol, or sedatives, and do not take any other medication without checking with your physician. MUSCLE RELAXERS: Muscle relaxing medications are usually prescribed for acute muscle spasm or injury to the neck and back. They are often combined with antiinflammatory pain medication for increased relief. You may stop the muscle relaxer when the pain and stiffness have improved. Start the medication again if spasms recur. Muscle relaxers may cause drowsiness, especially with the first dose. Do not operate machinery or drive while under the effects of the medication. Most muscle relaxers last up to 24 hours. Do not combine the medication with alcohol. ICE PACKS: Apply ice packs frequently against the painful area. Many different schedules are recommended, such as "20 minutes on, 20 minutes off" or "one hour ice, two hours rest." If you need to work, you may need to go longer between ice treatments. You should plan to have the area ice packed AT LEAST one fourth of the time. The ice should be applied over the wrap, tape, or splint, or over a layer of cloth -- not directly against the skin. Some ice bags have a built-in cloth and can be put directly on the skin. WARM PACKS: After approximately two days, apply gentle heat (such as a heating pad or hot water bottle) for about 20 to 30 minutes about every two hours -- at least four times daily. Warmth and elevation will help you make a more rapid recovery, and will ease the pain considerably. Do not use HOT heat, and never apply heat for longer than 30 minutes. The continuous heat can invisibly damage skin and muscles -- even when no burn is seen on the surface. Damaged muscles can make you MORE sore. FOLLOW-UP CARE: If you have been referred to a physician for follow-up care, call the physicians office for an appointment as you were instructed or within the next two days. If you experience worsening or a significant change in your symptoms, notify the physician immediately or return to the Emergency Department at any time for re-evaluation. Prescriptions: Cyclobenzaprine HCl [Flexeril 10 mg Tablet] 10 mg PO TID #15 tab Naproxen 500 mg PO BID PRN #14 tablet PRN Reason: Forms: Return to Work Referrals: [facility] [Provider Group] - Follow up as needed [facility] [Provider Group] - Follow up as needed
--- NOTE | 2018-12-06 12:21 | RADIOLOGY REPORT (SQ) ---
EXAM DESCRIPTION: L SPINE WHOLE COMPLETED DATE/TIME: 12/06/2018 12:07 pm REASON FOR STUDY: low back pain COMPARISON: None. NUMBER OF VIEWS: Five views including obliques. TECHNIQUE: AP, lateral, oblique, and sacral radiographic images acquired of the lumbar spine. LIMITATIONS: None. FINDINGS: MINERALIZATION: Normal. SEGMENTATION: Normal. No transitional anatomy. ALIGNMENT: Normal. VERTEBRAE: Maintained height. No fracture or worrisome bone lesion. DISCS: Preserved height. No significant osteophytes or end plate irregularity. POSTERIOR ELEMENTS: Pedicles and facets are intact. Probable pars defects at L5. HARDWARE: None in the spine. PARASPINAL SOFT TISSUES: Normal. PELVIS: Intact as visualized. No fractures or worrisome bone lesions. SI joints intact. OTHER: No other significant finding. IMPRESSION: Probable pars defects at L5. No significant listhesis. Disc spaces and vertebral body heights are generally well preserved. Lumbar disc and neural foraminal pathology may be further eval uated by MRI if indicated by localizing signs and symptoms. TECHNICAL DOCUMENTATION: JOB ID: [id number] [employer]- All Rights Reserved Reading location - IP/workstation name: [email or web address]
== END 2018-12-06 12:57 | disposition home or self-care (01) ==
LOC: ER 11:25
DX: M54.5 Low back pain (principal); G89.29 Other chronic pain
CPT/HCPCS: 99283; 96372; 72110; J1885

== ENCOUNTER 2019-02-21 08:48 | Emergency (ER) | payer SELFPAY ==
--- NOTE | 2019-02-21 10:19 | ER Document Report ---
ED General - General Chief Complaint: Ear Pain Stated Complaint: RIGHT EAR PAIN, TOOTH PAIN Time Seen by Provider: 02/21/19 09:57 Mode of Arrival: Ambulatory Information source: Patient TRAVEL OUTSIDE OF THE [place] IN LAST 30 DAYS: No - HPI Onset: Other - over the last week Onset/Duration: Gradual Quality of pain: Achy Severity: Mild Pain Level: 2 Associated symptoms: Other - runny nose, sinus pain/pressure/congestion, right ear pain Exacerbated by: Other - nothing Relieved by: Other - nothing Similar symptoms previously: No Recently seen / treated by doctor: No Notes: 28 year old female with no significant PMH here for 1 week of sinus pressure/congestion, runny nose, and right ear pain. The patient says her children all have viral illnesses. The patient denies fevers, chills, sweats, nausea, vomiting, productive cough. The patient initially thought she just had a cold but her symptoms have lasted a week and seem to be getting worse. The patient also has some pain in her back right lower molar which a part of has broken off in the past. The patient denies facial swelling. - Related Data Allergies/Adverse Reactions: No Known Allergies Allergy (Verified 11/17/18 16:43) Past Medical History - General Information source: Patient - Social History Smoking Status: Never Smoker Chew tobacco use (# tins/day): No Frequency of alcohol use: None Drug Abuse: None Lives with: Family Family History: Reviewed & Not Pertinent Patient has suicidal ideation: No Patient has homicidal ideation: No - Past Medical History Cardiac Medical History: Denies: Hx Coronary Artery Disease, Hx Heart Attack, Hx Hypertension Pulmonary Medical History: Denies: Hx Asthma, Hx Bronchitis, Hx COPD, Hx Pneumonia Neurological Medical History: Denies: Hx Cerebrovascular Accident, Hx Seizures Renal/ Medical History: Denies: Hx Peritoneal Dialysis Musculoskeletal Medical History: Reports Hx Arthritis - Hands, Lt knee - Immunizations Immunizations up to date: Yes Hx Diphtheria, Pertussis, Tetanus Vaccination: Yes Review of Systems - Review of Systems Constitutional: denies: Chills, Fever EENT: Ear pain, Nose congestion, Nose discharge, Sinus pressure. denies: Throat pain -: Yes All other systems reviewed and negative Physical Exam - Vital signs Vitals: Temp Pulse Resp BP Pulse Ox 98.4 F 74 18 141/76 H 98 02/21/19 08:52 02/21/19 08:52 02/21/19 08:52 02/21/19 08:52 02/21/19 08:52 - Notes Notes: GENERAL: Well-appearing, well-nourished and in no acute distress. HEAD: Atraumatic, normocephalic. EYES: Pupils equal round and reactive to light, extraocular movements intact, sclera anicteric, conjunctiva are normal. ENT: TMs normal, nares patent, oropharynx clear without exudates. Moist mucous membranes. Mild tenderness over right frontal and maxillary sinuses. NECK: Normal range of motion, supple without lymphadenopathy or JVD. LUNGS: Breath sounds clear to auscultation bilaterally and equal. No wheezes rales or rhonchi. HEART: Regular rate and rhythm without murmurs, rubs or gallops. ABDOMEN: Soft, nontender, normoactive bowel sounds. No guarding, no rebound. No masses appreciated. EXTREMITIES: Normal range of motion, no pitting or edema. No clubbing or cyanosis. NEUROLOGICAL: Cranial nerves II through XII grossly intact. Normal speech, normal gait. PSYCH: Normal mood, normal affect. SKIN: Warm, Dry, normal turgor, no rashes or lesions noted. Course - Re-evaluation Re-evalutation: 02/21/19 10:33 The patient likely has a lingering viral illness but she does have some unilateral symptoms (right ear pain, right sinus pain, right lower molar pain in molar which previously broke). Will prescribe patient Amoxicillin and have patient follow up with a PCP and Dentist. No labs or diagnostics needed today. 02/21/19 10:34 - Vital Signs Vital signs: Temp Pulse Resp BP Pulse Ox 98.3 F 77 20 160/78 H 97 02/21/19 10:21 02/21/19 10:21 02/21/19 10:21 02/21/19 10:21 02/21/19 10:21 Discharge - Discharge Clinical Impression: Sinusitis Qualifiers: Sinusitis location: unspecified location Chronicity: acute Recurrence: not specified as recurrent Qualified Code(s): J01.90 - Acute sinusitis, unspecified Condition: Stable Disposition: HOME, SELF-CARE Instructions: Dental Infection or Abscess ([facility]), Sinusitis ([facility]) Additional Instructions: Take antibiotics (amoxicillin) as prescribed. Use Tylenol and Motrin for pain and fevers. Follow up with a primary care doctor and with a Dentist. Prescriptions: Amoxicillin 1 tab PO TID 7 Days #21 tab
[2019-02-21 10:23] VITALS: BP 160/78
== END 2019-02-21 10:44 | disposition home or self-care (01) ==
LOC: ER 08:48
DX: J01.90 Acute sinusitis, unspecified (principal); H92.01 Otalgia, right ear; K08.89 Other specified disorders of teeth and supporting structures; R09.89 Other specified symptoms and signs involving the circulatory and respiratory systems; R51 Headache; R09.81 Nasal congestion; R05 Cough
CPT/HCPCS: 99283

== ENCOUNTER 2019-04-09 14:34 | Emergency (ER) | payer OTHER ==
--- NOTE | 2019-04-09 15:11 | ER Document Report ---
ED Medical Screen (RME) - General Chief Complaint: Chest Pain Stated Complaint: CHEST PAIN Time Seen by Provider: 04/09/19 15:09 TRAVEL OUTSIDE OF THE [place] IN LAST 30 DAYS: No - HPI Notes: 04/09/19 15:10 Patient is a 28-year-old female no significant past medical history presents complaint of left sternal chest pain that is been present since this morning. Pain does not radiate. She is unaware of anything that significantly worsens or improves her symptoms. Denies drug allergies. She has not experienced this before. Denies any prolonged immobilization, distance travel, recent surgery/trauma, personal cancer history, hormone use, smoking, or previous DVT/PE. Denies NETTLES, fever, neck pain, URI, n/v/d, Abd pain, dysuria, back pain, or rash. I have treated and performed a rapid initial assessment of this patient. A comprehensive ED assessment and evaluation of the patient, analysis of test results and completion of medical decision making process will be conducted by additional ED providers. PHYSICAL EXAMINATION: GENERAL: Well-appearing, well-nourished and in no acute distress. A&Ox4. Answers questions appropriately. LUNGS: Breath sounds clear to auscultation bilaterally and equal. No wheezes rales or rhonchi. HEART: Regular rate and rhythm without murmurs, rubs, gallops. Extremities: trace pitting edema b/l LE's. Gen negative bilaterally. No lower extremity asymmetry. NEUROLOGICAL: Normal speech, normal gait. PSYCH: Normal mood, normal affect. - Related Data Allergies/Adverse Reactions: No Known Allergies Allergy (Verified 04/09/19 15:09) Past Medical History - Past Medical History Cardiac Medical History: Denies: Hx Coronary Artery Disease, Hx Heart Attack, Hx Hypertension Pulmonary Medical History: Denies: Hx Asthma, Hx Bronchitis, Hx COPD, Hx Pneumonia Neurological Medical History: Denies: Hx Cerebrovascular Accident, Hx Seizures Renal/ Medical History: Denies: Hx Peritoneal Dialysis Musculoskeltal Medical History: Reports Hx Arthritis - Hands, Lt knee - Immunizations Immunizations up to date: Yes Hx Diphtheria, Pertussis, Tetanus Vaccination: Yes Physical Exam - Vital signs Vitals: Temp Pulse Resp BP Pulse Ox 98.7 F 76 18 143/66 H 98 04/09/19 14:48 04/09/19 14:48 04/09/19 14:48 04/09/19 14:48 04/09/19 14:48 Course - Vital Signs Vital signs: Temp Pulse Resp BP Pulse Ox 98.7 F 76 18 143/66 H 98 04/09/19 14:48 04/09/19 14:48 04/09/19 14:48 04/09/19 14:48 04/09/19 14:48
[2019-04-09 15:46] LABS: ABSOLUTE LYMPHOCYTES (AUTO) 2.5 10^3/uL (0.5-4.7); ABSOLUTE MONOCYTES (AUTO) 0.7 10^3/uL (0.1-1.4); ABSOLUTE NEUT (AUTO) 7.2 10^3/uL (1.7-8.2); BASOPHILS % (AUTO) 0.1 % (0-2); EOSINOPHILS % (AUTO) 0.4 % (0-6); HEMATOCRIT 41.4 % (36.0-47.0); HEMOGLOBIN 14.1 g/dL (12.0-15.5); LYMPHOCYTES % (AUTO) 24.3 % (13-45); MEAN CORPUSCULAR HEMOGLOBIN 29.9 pg (27.0-33.4); MEAN CORPUSCULAR VOLUME 88 fl (80-97); MONOCYTES % (AUTO) 6.2 % (3-13); PLATELET COUNT 367 10^3/uL (150-450); RED BLOOD COUNT 4.71 10^6/uL (3.72-5.28); RED CELL DISTRIBUTION WIDTH 12.8 % (11.5-14.0); TOTAL CELLS COUNTED % (AUTO) 100 %; WHITE BLOOD COUNT 10.5 10^3/uL (4.0-10.5)
--- NOTE | 2019-04-09 15:54 | RADIOLOGY REPORT (SQ) ---
EXAM DESCRIPTION: CHEST 2 VIEWS COMPLETED DATE/TIME: 04/09/2019 3:45 pm REASON FOR STUDY: CP COMPARISON: PA and lateral views of the chest from 09/20/2012. EXAM PARAMETERS: NUMBER OF VIEWS: Two views. TECHNIQUE: PA and lateral views of the chest were obtained.. RADIATION DOSE: NA LIMITATIONS: none FINDINGS: LUNGS AND PLEURA: No consolidation, pleural effusion or pneumothorax. MEDIASTINUM AND HILAR STRUCTURES: No mediastinal or hilar contour abnormality. HEART AND VASCULAR STRUCTURES: The cardiac silhouette and pulmonary vasculature are within normal camp its. BONES: No acute findings. HARDWARE: None in the chest. OTHER: No other finding. IMPRESSION: No acute cardiopulmonary process. TECHNICAL DOCUMENTATION: JOB ID: [id number] 2010 [employer]- All Rights Reserved Reading location - IP/workstation name: [email or web address]
[2019-04-09 16:14] LABS: ALBUMIN 4.5 g/dL (3.5-5.0); ALKALINE PHOSPHATASE 43 U/L (38-126); ANION GAP 9 (5-19); ASPARTATE AMINO TRANSFERASE 23 U/L (14-36); BILIRUBIN,TOTAL 0.4 mg/dL (0.2-1.3); BLOOD UREA NITROGEN 13 mg/dL (7-20); CALCIUM 9.6 mg/dL (8.4-10.2); CARBON DIOXIDE 27 mmol/L (22-30); CHLORIDE 103 mmol/L (98-107); GLUCOSE 86 mg/dL (75-110); POTASSIUM 3.8 mmol/L (3.6-5.0); TOTAL PROTEIN 7.9 g/dL (6.3-8.2)
[2019-04-09 16:22] LABS: APPEARANCE,URINE CLEAR; BILIRUBIN,URINE NEGATIVE (NEGATIVE); COLOR,URINE YELLOW; GLUCOSE, URINE NEGATIVE (NEGATIVE); KETONES,URINE NEGATIVE (NEGATIVE); PROTEIN,URINE NEGATIVE (NEGATIVE); URINE SPECIFIC GRAVITY 1.014; UROBILINOGEN,URINE NEGATIVE mg/dL (<2.0)
--- NOTE | 2019-04-09 18:33 | ER Document Report ---
ED General - General Chief Complaint: Chest Pain Stated Complaint: CHEST PAIN Time Seen by Provider: 04/09/19 15:09 TRAVEL OUTSIDE OF THE [place] IN LAST 30 DAYS: No - HPI Notes: Patient is a 28-year-old female who presents emergency department for evaluation of left-sided chest pain. She points to her left chest, just below the midclavicular region. She states that sharp and stabbing. It is been inter mittent over the last several days but became constant this morning. Nothing seems to make it better or worse. She does feel slightly nauseated with this pain. She denies any associated shortness of breath, diaphoresis, palpitations, near syncope. - Related Data Allergies/Adverse Reactions: No Known Allergies Allergy (Verified 04/09/19 15:09) Home Medications: None Past Medical History - General Information source: Patient - Social History Smoking Status: Never Smoker Family History: Reviewed & Not Pertinent, DM, Hypertension Patient has suicidal ideation: No Patient has homicidal ideation: No - Past Medical History Cardiac Medical History: Denies: Hx Coronary Artery Disease, Hx Heart Attack, Hx Hypertension Pulmonary Medical History: Denies: Hx Asthma, Hx Bronchitis, Hx COPD, Hx Pneumonia Neurological Medical History: Denies: Hx Cerebrovascular Accident, Hx Seizures Renal/ Medical History: Denies: Hx Peritoneal Dialysis Musculoskeletal Medical History: Reports Hx Arthritis - Hands, Lt knee - Immunizations Immunizations up to date: Yes Hx Diphtheria, Pertussis, Tetanus Vaccination: Yes Review of Systems - Review of Systems Cardiovascular: See HPI Gastrointestinal: See HPI -: Yes All other systems reviewed and negative Physical Exam - Vital signs Vitals: Temp Pulse Resp BP Pulse Ox 98.7 F 76 18 143/66 H 98 04/09/19 14:48 04/09/19 14:48 04/09/19 14:48 04/09/19 14:48 04/09/19 14:48 - Notes Notes: This is an obese 28-year-old female who appears her stated age in no acute distress. Vital signs reviewed, please refer to chart. Head is normocephalic, atraumatic. Pupils equal round, reactive to light. Neck is supple without meningismus. Heart is regular rate and rhythm. Lungs are clear to auscultation bilaterally. Chest wall shows no clear abnormality, she is tender to palpation in the area of her pain. Abdomen is soft, nontender, normoactive bowel sounds throughout. Extremities without cyanosis, clubbing. Posterior calves are nontender. Peripheral pulses are equal. Skin is warm and dry. Patient is awake, alert, neurological exam is nonfocal. Course - Re-evaluation Re-evalutation: 04/09/19 18:37 Patient presents emergency department for evaluation. She is a 20-year-old female with left-sided chest pain. She has no family history of blood clots, no risk factors for blood clots. She is not tachycardic. Her chest wall pain is reproducible. Her EKG is unremarkable. Her laboratory investigations failed to reveal any elevation in cardiac enzymes. At this point I feel comfortable discharging the patient. She is to follow-up with primary care. I told her that she needs to aggressively evaluate all of her risk factors and follow-up closely. She voiced understanding. Otherwise she should take Tylenol or ibuprofen as needed for pain, return to the ED with worsening or new concerning symptoms of any sort. - Vital Signs Vital signs: Temp Pulse Resp BP Pulse Ox 98.7 F 76 18 143/66 H 99 04/09/19 14:48 04/09/19 14:48 04/09/19 14:48 04/09/19 14:48 04/09/19 15:11 - Laboratory Result Diagrams: 04/09/19 15:24 04/09/19 15:24 Laboratory results interpreted by me: 04/09/19 15:24 Urine Blood SMALL H - Diagnostic Test Radiology reviewed: Reports reviewed Radiology results interpreted by me: 04/09/19 18:38 Chest X-Ray 04/09/19 15:11 IMPRESSION: No acute cardiopulmonary process. - EKG Interpretation by Me Additional EKG results interpreted by me: 04/09/19 18:38 Sinus mechanism with a rate of 71 bpm. Normal axis and intervals. No acute ST change concerning for ischemia or infarction. Discharge - Discharge Clinical Impression: Chest pain Condition: Stable Disposition: HOME, SELF-CARE Instructions: Chest Wall Pain ([facility]), Chest Pain of Unclear Cause ([facility]) Additional Instructions: Your chest wall was tender to palpation. It is unclear as to whether if this is the sole cause of your pain, or another cause is identified. Your testing here was unremarkable. Overall you are low risk, but you need to follow-up with primary care for further testing and evaluation. If you develop worsening or new concerning symptoms of any sort, please return immediately to the emergency department for evaluation.
[2019-04-09 18:49] VITALS: BP 124/68
--- NOTE | 2019-04-09 19:43 | EKG REPORT ---
SEVERITY:- NORMAL ECG - SINUS RHYTHM : Confirmed by: Cari Toledo MD 09-Apr-2019 19:42:39
== END 2019-04-09 18:49 | disposition home or self-care (01) ==
LOC: ER 14:34
DX: R07.89 Other chest pain (principal); R11.0 Nausea; E66.9 Obesity, unspecified
CPT/HCPCS: 36415; 71046; 80053; 81001; 81025; 84484; 85025; 87086; 93005; 93010; 99285